=== PATIENT | female | born 1940 | race Caucasian/White ===

== ENCOUNTER 2017-07-09 11:12 | Emergency (ER) | payer MEDICARE, OTHER ==
--- NOTE | 2017-07-09 11:29 | ED Physician Chart ---
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 Pain, A/N/V/D/C, fever, chills, weakness, dizziness, paresthesias, vertigo, or urinary s/s; pt's last tetanus shot: < 5 years; UTD Historian:: Patient, EMS Review:: Nurse's Note Reviewed, Old Chart Reviewed, EMS run form Reviewed ED Review of Systems - Review of Systems General/Constitutional: No fever, No chills, No weight loss, No weakness, No diaphoresis, No edema, No loss of appetite Skin: No skin lesions, No rash, No bruising Head: No headache, No light-headedness Eyes: No loss of vision, No pain, No diplopia ENT: No earache, No nasal drainage, No sore throat, No tinnitus Neck: No neck pain, No swelling, No thyromegaly, No stiffness, No mass noted Cardio Vascular: No chest pain, No palpitations, No PND, No orthopnea, No edema Pulmonary: No SOB, No cough, No sputum, No wheezing GI: No nausea, No vomiting, No diarrhea, No pain, No melena, No hematochezia, No constipation, No hematemesis G/U: No dysuria, No frequency, No hematuria, No nacturia 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 vaginal discharge, No abnormal vaginal bleed, No contraction Musculoskeletal: No bone or joint pain, No back pain, No muscle pain Endocrine: No polyuria, No polydipsia Psychiatric: Prior psych history, Depression, Anxiety, No suicidal ideation, No homicidal ideation, No auditory hallucination, No visual hallucination Hematopoietic: No bruising, No lymphadenopathy Allergic/Immuno: No urticaria, No angioedema Neurological: Syncope, Focal symptoms, No weakness, No paresthesia, No headache , No seizure, Dizziness, Confusion, No vertigo ED Past Medical History - Past Medical History Obtainable: Yes Past Medical History: HTN, CVA/TIA, Dyslipidemia, ESRD, Thyroid disorder, Arthritis Family History: Heart disease, HTN Social History: Non Smoker, No Alcohol, No Drug Use, , Care Facility Surgical History: Cholecystectomy Psychiatricy History: Depression Medication: Reviewed ED Physical Exam - Physical Examination General/Constitutional: Awake, Well-developed, well-nourished, Alert, No distress, GCS 15, Non-toxic appearing, Ambulatory Other Head comments:: + Occipital Scalp Contusion Eyes: Lids, conjuctiva normal, PERRL, EOMI Skin: Nl inspection, No rash, No skin lesions, No ecchymosis, Well hydrated, No lymphadenopathy ENMT: External ears, nose nl, TM canals nl, Nasal exam nl, Lips, teeth, gums nl , Oropharynx nl, Tonsils nl Neck: Nontender, Full ROM w/o pain, No JVD, No nuchal rigidity, No bruit, No mass, No stridor Respiratory: Nl effort/Exclusion, Clear to Auscultation, No Wheeze/Rhonchi/Rales Cardio Vascular: RRR, No murmur, gallop, rubs, NL S1 S2, Carotid/Femoral/Distal pulses equal bilaterally GI: No tenderness/rebounding/guarding, No organomegaly, No hernia, Normal BS's, Nondistended, No mass/bruits, No McBurney tenderness : No CVA tenderness Extremities: No tenderness or effusion, Full ROM, normal strength in all extremities, No edema, Normal digits & nails Neuro/Psych: Alert/oriented, DTR's symmetric, Normal sensory exam, Normal motor strength, Judgement/insight normal, Mood normal, Normal gait, No focal deficits Misc: Normal back, No paraspinal tenderness ED Labs/Radiology/EKG Results - Lab Results Comments:: WBC: 17.9; otherwise unremarkable - Radiology Results Comments:: CXR: NAD; CT Head: NAD - EKG Interpretations EKG Time:: 11:39 Rate & Rhythm: 51; SB Comments:: non-specific st-t changes ED Septic Shock - . Is Septic Shock (SBP<90, OR Lactate>4 mmol\L) present?: No ED Reassessment (Disposition) - Reassessment Reassessment:: pt is asymptomatic upon discharge Reassessment Condition:: Improved - Diagnosis Diagnosis:: Scalp Contusion; Head Injury; S/P Fall; ? Syncope; Leukocytosis - Aftercare/Follow up Instructions Aftercare/Follow-Up Instructions:: Counseled pt regarding lab results/diagnosis & need follow up, Refer to Discharge Instructions, Counseled pt & family regarding lab results/diagnosis & need follow up Medication Prescribed:: Dr. Bravo notified and consulted; Dr. 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 Bravo Time Called:: [id number] Time Responded:: 13:15 Spoke to:: Dr. Bravo Condition at Disposition:: Stable, Improved (RTER prn if existing s/s reoccur and/or get worse and/or any other new s/s occur; X-Rays Instructions; ACIs given for all above Dx; Refer to Spinner Iron/Neurologist/Trauma Specialist/ Nozzle Operator SHORTY; F/U with PMD in one day or prn; RTER prn if concerned) ED Discharge Plan - Patient Disposition Instructions: Fall Prevention and Home Safety, [id number]
[2017-07-09 11:45] LABS: HEMATOCRIT 43.6 % (41.0-60); HEMOGLOBIN 14.4 gm/dL (12-16); MEAN CELL VOLUME 84.1 fl (81-100); MEAN CORPUSCULAR HEMOGLOBIN 27.7 pg (27.0-31.0); MEAN CORPUSCULAR HGB CONC 32.9 pg (28.0-36.0); MEAN PLATELET VOLUME 9.3 fl; PLATELET COUNT 142 Th/cmm (150-400); RED BLOOD COUNT 5.19 Mil/cmm (3.80-5.20); RED CELL DISTRIBUTION WIDTH 13.3 % (11.5-20.0)
[2017-07-09 11:53] LABS: MANUAL DIFF REQUIRED? YES; WHITE BLOOD COUNT 17.9 Th/cmm (4.8-10.8)
[2017-07-09 11:55] LABS: INR 0.98 (0.5-1.4); PROTHROMBIN TIME (TEST) 10.2 SECONDS (9.5-11.5)
[2017-07-09 12:00] LABS: ALB/GLOB RATIO 1.2 (1.0-1.8); ALBUMIN 3.8 gm/dL (3.7-5.3); ALKALINE PHOSPHATASE 69 U/L (34-104); ANION GAP 9.4 (7.0-16.0); BILIRUBIN,TOTAL 0.4 mg/dL (0.3-1.0); BUN - UREA NITROGEN 24 mg/dL (7-25); CALCIUM SERUM 9.2 mg/dL (8.6-10.3); CARBON DIOXIDE 31.5 mEq/L (21.0-31.0); CHLORIDE 98 mEq/L (98-107); CHOLESTEROL 121 mg/dL (<200); CREATININE - SERUM 1.1 mg/dL (0.6-1.2); CREATININE KINASE 26 U/L (30-223); GLUCOSE 96 mg/dL (70-105); HDL -HIGH DENSITY LIPOPROTEIN 28 mg/dL (23-92); POTASSIUM SERUM 3.9 mEq/L (3.5-5.1); SGOT 15 U/L (13-39); SGPT/ALT 13 U/L (7-52); SODIUM SERUM 135 mEq/L (136-145); TOTAL PROTEIN,SERUM 6.9 gm/dL (6.0-8.3); TRIGLYCERIDES 192 mg/dL (<150)
[2017-07-09 12:06] LABS: BAND NEUTROPHILE 2 % (0-10); EOSINOPHIL 1 % (0-5); LYMPHOCYTE 29 % (20-50); MONOCYTE 12 % (2-10); NEUTROPHILS 56 % (40-80); TOTAL CELLS COUNTED 100
--- NOTE | 2017-07-09 12:12 | Diagnostic Imaging Report ---
CHEST X-RAY: AP view INDICATION: pain COMPARISON: None FINDINGS: There is elevation of the left hemidiaphragm limited assessment of the left lung base. Increased interstitial lung markings are noted. There is no focal consolidation or pleural effusions. The heart size at the upper limits of normal. Densities are seen along the left upper quadrant. The osseous structures are intact. IMPRESSION: Elevation of the left hemidiaphragm limiting assessment of the left lung base. If indicated, lateral views may also be obtained. Otherwise no focal consolidation Increased interstitial lung markings which may be chronic, however, a marginal degree of congestion cannot be excluded. Please correlate clinically. Densities along the left upper quadrant possibly due to external overlying material. Please correlate clinically.
--- NOTE | 2017-07-09 12:35 | Diagnostic Imaging Report ---
Head CT without intravenous contrast Indication: Trauma, syncope Comparison: None Technique: Axial images were obtained from the vertex to the skull base without IV contrast. Coronal reconstructions were made. Total DLP: 712, [id number] FINDINGS: Images of the brain obtained without contrast demonstrate no evidence of an acute hemorrhage. Mild white matter disease noted with small areas of encephalomalacia involving the right frontal and parietal parietal regions. Atrophy is there is evidence of previous partial left mastoidectomy and partial resection of the calvarium in this region with small residual bony fragments noted. No focal soft tissue swelling. There is mucosal thickening of the paranasal sinuses. Postsurgical changes of the frontal calvarium is also noted. IMPRESSION: Postsurgical changes including evidence of previous left mastoidectomy and partial resection of the left occipital calvarium in this region and with small residual bony fragments noted. Please correlate surgical history and old exams. Additional small screws of the bilateral frontal bone regions. Please correlate with surgical history. No evidence of an acute hemorrhage Mild white matter disease which is nonspecific and may be a chronic microvessel ischemia. There are small areas of encephalomalacia of the right frontal and right frontoparietal lobe. Diffuse atrophy. Atherosclerotic vascular disease.
[2017-07-09 12:58] LABS: URINE MICROSCOPIC INDICATED? YES; URINE SOURCE MIDSTREAM
[2017-07-09 13:01] LABS: URINE BILIRUBIN NEGATIVE (NEGATIVE); URINE BLOOD NEGATIVE (NEGATIVE); URINE CLARITY CLEAR (CLEAR); URINE COLOR YELLOW; URINE GLUCOSE (UA) NEGATIVE (NEGATIVE); URINE KETONE NEGATIVE (NEGATIVE); URINE LEUKOCYTE ESTERASE NEGATIVE (NEGATIVE); URINE NITRATE NEGATIVE (NEGATIVE); URINE PH 5.5 (4.6 - 8.0); URINE PROTEIN NEGATIVE (NEGATIVE); URINE UROBILINOGEN 0.2 E.U./dL (0.2 - 1.0)
[2017-07-09 13:05] LABS: URINE EPITHELIAL CELLS OCCASIONAL /lpf (FEW); URINE WBC 0-2 /hpf (0-5)
[2017-07-09 13:06] LABS: URINE BACTERIA OCCASIONAL /hpf (NONE SEEN)
== END 2017-07-09 14:05 ==
LOC: ER 11:12
DX: S00.03XA Contusion of scalp, initial encounter (principal); D72.829 Elevated white blood cell count, unspecified; I12.0 Hypertensive chronic kidney disease with stage 5 chronic kidney disease or end stage renal disease; N18.6 End stage renal disease; E07.9 Disorder of thyroid, unspecified; E78.5 Hyperlipidemia, unspecified; Z86.73 Personal history of transient ischemic attack (TIA), and cerebral infarction without residual deficits; Z90.49 Acquired absence of other specified parts of digestive tract; X58.XXXA Exposure to other specified factors, initial encounter; Y93.89 Activity, other specified; Y92.89 Other specified places as the place of occurrence of the external cause; Y99.8 Other external cause status
CPT/HCPCS: 36415-UA; 70450-TC; 71045-TC; 80053-TC; 80061-TC; 81001-TC; 82550-TC; 83605; 83880-TC; 84484-TC; 85007-TC; 85025-TC; 85027-TC; 85610-TC; 85730-TC; 93005; 94760